=== PATIENT | male | born 1945 | race Two or more races ===

== ENCOUNTER → 2016-12-20 | Outpatient (CLI) | payer MEDICARE ==
[2016-12-20 10:59] LABS: ALANINE AMINOTRANSFERASE 35 U/L (21-72); ALKALINE PHOSPHATASE 73 U/L (38-126); ASPARTATE AMINO TRANSFERASE 29 U/L (17-59); BILIRUBIN,DIRECT 0.4 mg/dL (0.0-0.4); BILIRUBIN,TOTAL 0.5 mg/dL (0.2-1.3); TOTAL PROTEIN 7.2 g/dL (6.3-8.2)
== END ==
LOC: OD 09:00
PROVIDERS: ATTEND Radiology Radiation Oncology
DX: C61 Malignant neoplasm of prostate (principal); R97.20 Elevated prostate specific antigen [PSA]; Z79.899 Other long term (current) drug therapy
CPT/HCPCS: 36415; 80076; 84153

== ENCOUNTER → 2017-03-20 | Outpatient (CLI) | payer MEDICARE | LOC: OD 10:13 | PROVIDERS: ATTEND Radiology Radiation Oncology | DX: C61 Malignant neoplasm of prostate (principal); Z79.899 Other long term (current) drug therapy; R97.20 Elevated prostate specific antigen [PSA] | CPT/HCPCS: 36415; 84153 ==

== ENCOUNTER → 2017-04-10 | Outpatient (CLI) | payer MEDICARE ==
[2017-04-10 07:37] LABS: HEMOGLOBIN 12.5 g/dL (13.5-17.0); HGB HCT DIFFERENCE 1.5; MEAN CORPUSCULAR HEMOGLOBIN 29.4 pg (27.0-33.4); MEAN CORPUSCULAR HGB CONC 34.6 g/dL (32.0-36.0); MEAN CORPUSCULAR VOLUME 85 fl (80-97); RED BLOOD COUNT 4.25 10^6/uL (4.35-5.55); RED CELL DISTRIBUTION WIDTH 14.2 % (11.5-14.0); WHITE BLOOD COUNT 15.6 10^3/uL (4.0-10.5)
[2017-04-10 07:40] LABS: ANISOCYTOSIS SLIGHT; BAND NEUTROPHILS % (MANUAL) 3 % (3-5); BASOPHILS % (MANUAL) 0 % (0-2); EOSINOPHILS % (MANUAL) 0 % (0-6); LYMPHOCYTES % (MANUAL) 3 % (13-45); POLYCHROMASIA SLIGHT; TOTAL CELLS COUNTED 100; TOXIC GRANULATION SLIGHT
[2017-04-10 07:41] LABS: STOMATOCYTES SLIGHT
[2017-04-10 07:43] LABS: ANION GAP 14 (5-19); BLOOD UREA NITROGEN 22 mg/dL (7-20); CALCIUM 9.5 mg/dL (8.4-10.2); CARBON DIOXIDE 26 mmol/L (22-30); CHLORIDE 96 mmol/L (98-107); CREATININE RESULT 1.23 mg/dL (0.52-1.25); GLUCOSE 179 mg/dL (75-110)
== END ==
LOC: LAB 07:27
PROVIDERS: ATTEND Emergency Medicine
DX: R50.9 Fever, unspecified (principal); Z85.038 Personal history of other malignant neoplasm of large intestine; Z85.46 Personal history of malignant neoplasm of prostate; Z86.39 Personal history of other endocrine, nutritional and metabolic disease
CPT/HCPCS: 36415; 80048; 85025

== ENCOUNTER → 2017-07-03 | Outpatient (CLI) | payer MEDICARE ==
--- NOTE | 2017-07-03 13:07 | RADIOLOGY REPORT (SQ) ---
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 The route of agent administration: Intravenous. ADDITIONAL DRUGS AND DOSES: None. TECHNIQUE: Routine delayed images at 3 hours post radionuclide injection acquired of the bony skelet on including anterior and posterior whole-body projections and additional focused images as needed. LIMITATIONS: None. FINDINGS: BONES: Normal visualization without areas of photopenia or increased bony uptake of radiop harmaceutical. KIDNEYS: Activity is present in a dilated right renal collecting system. OTHER: No other significant finding. IMPRESSION: 1. There is no evidence metastatic disease to bone. 2. Right renal collecting systems dilated, suggesting obstruction. COMMENT: Quality measure 147: Current bone scan is compared with any available plain radiographs, p rior bone scans, and CT/MRI. TECHNICAL DOCUMENTATION: JOB ID: [id number] [employer]- All Rights Reserved
== END ==
LOC: RAD 07:30
PROVIDERS: ATTEND Internal Medicine
DX: C61 Malignant neoplasm of prostate (principal)
CPT/HCPCS: 78306; A9561; Q9969

== ENCOUNTER 2017-07-24 09:15 | Day surgery (SDC) | payer MEDICARE ==
[~2017-07-24 09:15] MED LIST: PROPOFOL INJ 200 MG/20 ML VIAL IV ONE
[2017-07-24 11:24] VITALS: BP 104/76
--- NOTE | 2017-07-24 13:57 | Operative Report ---
Operative Report DATE OF SURGERY: 07/24/17 Operative Report: The risks, benefits and alternatives of the procedure including risks of bleeding, perforation requiring surgery are explained to the patient in detail and informed consent is obtained. Patient was taken back to the endoscopy suite and placed in the left, lateral decubital position. Timeout was called. Propofol medications administered. A rectal examination is done which did not reveal any masses, tears or fissures. An Olympus videoscope was inserted into the patient's rectum. The scope was then carefully advanced all the way to the cecum. The cecum was identified by the usual anatomical landmarks including the ileocecal valve as well as the appendiceal office. Photodocumentation is obtained. The scope was then sequentially pulled back via the various segments of the colon including the ascending colon, hepatic flexure, transverse colon, splenic flexure, descending colon finding to the rectosigmoid portions of the colon. Retroflexion maneuvers performed. The risks benefits and alternatives of the procedure explained to the patient in detail and informed consent is obtained.A GIF Olympus video scope was inserted into the patient's mouth and hypopharynx, the esophagus is identified intubated and insufflated, the scope was then advanced through the esophagus stomach and duodenum, retroflexion maneuver is done, the esophagus stomach and first and second portions of the duodenum examined PREOPERATIVE DIAGNOSIS: Blood in stool. Dysphagia, intermittent POSTOPERATIVE DIAGNOSIS: AVMs in the cecum and in the rectum that are cauterized in situ. Diverticulosis. Internal hemorrhoids. Gastritis status post biopsy rule out Helicobacter pylori OPERATION: Colonoscopy with ablation. EGD with biopsy SURGEON: DEBRA MICHEL ANESTHESIA: LMAC TISSUE REMOVED OR ALTERED: As noted above. COMPLICATIONS: None. ESTIMATED BLOOD LOSS: None. INTRAOPERATIVE FINDINGS: As noted above. PROCEDURE: Patient tolerated procedure well. No immediate postprocedure complications are noted. Patient discharged in good condition. Discharge date 07/24/2017. Discharge diet: Regular. Discharge activity: Regular. 2-3 week follow-up to discuss findings. Patient is instructed to call the office or proceed to the emergency room should there be any further problems or questions. We will await pathology.
== END 2017-07-24 11:20 | disposition home or self-care (01) ==
LOC: END 09:15
PROVIDERS: ATTEND Internal Medicine Gastroenterology
PROC: 0D5P8ZZ Destruction of Rectum, Via Natural or Artificial Opening Endoscopic (ICD-10-PCS; 2017-07-24)
PROC: 0DB68ZX Excision of Stomach, Via Natural or Artificial Opening Endoscopic, Diagnostic (ICD-10-PCS; principal; 2017-07-24 10:30)
PROC: 0D5H8ZZ Destruction of Cecum, Via Natural or Artificial Opening Endoscopic (ICD-10-PCS; 2017-07-24 10:30)
DX: K55.20 Angiodysplasia of colon without hemorrhage (principal); K57.30 Diverticulosis of large intestine without perforation or abscess without bleeding; K64.8 Other hemorrhoids; K29.30 Chronic superficial gastritis without bleeding; K92.1 Melena; R13.10 Dysphagia, unspecified; Z87.891 Personal history of nicotine dependence; E11.9 Type 2 diabetes mellitus without complications; I10 Essential (primary) hypertension; E78.5 Hyperlipidemia, unspecified; Z79.84 Long term (current) use of oral hypoglycemic drugs; Z79.899 Other long term (current) drug therapy; Z85.038 Personal history of other malignant neoplasm of large intestine; Z85.46 Personal history of malignant neoplasm of prostate; Z85.528 Personal history of other malignant neoplasm of kidney
CPT/HCPCS: 43239; 45388; 82962; 88342 ×2; 88305 ×2; J2704; 810

== ENCOUNTER 2017-07-28 09:00 | Emergency (ER) | payer MEDICARE ==
[2017-07-28] MEDS ORDERED: MORPHINE SULFATE 10 MG/ML INJ IV ONE ×2 (09:48→12:35)
--- NOTE | 2017-07-28 10:08 | ER Document Report ---
ED General - General Chief Complaint: Urinary Problem Stated Complaint: BLOOD IN URINE FEELING FAINT Time Seen by Provider: 07/28/17 09:22 Mode of Arrival: Ambulatory Information source: Patient Notes: 72 yr old male presents with complaints of flank pain , hematuria. Pt has a hx of kidney stone, bladder cancer. Pt had recent endoscopy colonoscopy on monday. Pt noted to have the blood this morning. TRAVEL OUTSIDE OF THE [place] IN LAST 30 DAYS: No - HPI Onset: Just prior to arrival Onset/Duration: Sudden Quality of pain: Achy Severity: Mild Pain Level: 1 Associated symptoms: Other Exacerbated by: Denies Relieved by: Denies Similar symptoms previously: Yes Recently seen / treated by doctor: Yes - Related Data Allergies/Adverse Reactions: No Known Drug Allergies Allergy (Verified 07/28/17 09:00) Past Medical History - Social History Smoking Status: Never Smoker Cigarette use (# per day): No Chew tobacco use (# tins/day): No Smoking Education Provided: No Frequency of alcohol use: None Drug Abuse: None Family History: Other Patient has suicidal ideation: No Patient has homicidal ideation: No - Past Medical History Cardiac Medical History: Reports: Hx Hypercholesterolemia - meds x 3 years, Hx Hypertension - meds x 3 years Denies: Hx Atrial Fibrillation, Hx Congestive Heart Failure, Hx Coronary Artery Disease, Hx Heart Attack, Hx Peripheral Vascular Disease, Hx Heart Murmur Pulmonary Medical History: Denies: Hx Asthma, Hx Bronchitis, Hx COPD, Hx Pneumonia, Hx Tuberculosis Neurological Medical History: Denies: Hx Cerebrovascular Accident, Hx Seizures Endocrine Medical History: Reports: Hx Hypothyroidism - meds x 1 year. Denies: Hx Graves' Disease, Hx Hyperthyroidism Renal/ Medical History: Reports: Hx Kidney Stones - ESWL x 2, . Denies: Hx Benign Prostatic Hyperplasia, Hx End Stage Renal Disease, Hx Peritoneal Dialysis Malignancy Medical History: Denies Hx Leukemia GI Medical History: Reports: Hx Gastroesophageal Reflux Disease - daily Prilosec. Denies: Hx Crohn's Disease, Hx Hiatal Hernia, Hx Irritable Bowel, Hx Liver Failure, Hx Pancreatitis, Hx Ulcer Musculoskeltal Medical History: Reports Hx Arthritis, Denies Hx Fibromyalgia, Denies Hx Muscular Dystrophy Traumatic Medical History: Denies: Hx Fractures Infectious Medical History: Denies: Hx HIV Past Surgical History: Reports: Hx Bowel Surgery - colon resection (25") 2007, no f/u chemo, Hx Herniorrhaphy - ventral w/mesh, subsequent mesh removal r/t infection, Hx Tonsillectomy - as child. Denies: Hx Appendectomy, Hx Cholecystectomy, Hx Colostomy, Hx Coronary Artery Bypass Graft, Hx Gastric Bypass Surgery, Hx Pacemaker - Immunizations Hx Diphtheria, Pertussis, Tetanus Vaccination: Yes Review of Systems - Review of Systems Notes: REVIEW OF SYSTEMS: CONSTITUTIONAL : Denies fever, chills, or sweats. Denies recent illness. EENT: Denies eye, ear, throat, or mouth pain or symptoms. Denies nasal or sinus congestion or discharge. Denies throat, tongue, or mouth swelling or difficulty swallowing. CARDIOVASCULAR: Denies chest pain. Denies palpitations or racing or irregular heart beat. Denies ankle edema. RESPIRATORY: Denies cough, cold, or chest congestion. Denies shortness of breath, difficulty breathing, or wheezing. GASTROINTESTINAL: Denies abdominal pain or distention. Denies nausea, vomiting , or diarrhea. Denies blood in vomitus, stools, or per rectum. Denies black, tarry stools. Denies constipation. GENITOURINARY: hematuria MUSCULOSKELETAL: flank pain SKIN: Denies rash, lesions or sores. HEMATOLOGIC : Denies easy bruising or bleeding. LYMPHATIC: Denies swollen, enlarged glands. NEUROLOGICAL: Denies confusion or altered mental status. Denies passing out or loss of consciousness. Denies dizziness or lightheadedness. Denies headache. Denies weakness or paralysis or loss of use of either side. Denies problems with gait or speech. Denies sensory loss, numbness, or tingling. Denies seizures. PSYCHIATRIC: Denies anxiety or stress. Denies depression, suicidal ideation, or homicidal ideation. ALL OTHER SYSTEMS REVIEWED AND NEGATIVE. Dictation was performed using [employer] voice recognition software PHYSICAL EXAMINATION: GENERAL: Well-appearing, well-nourished and in mild acute distress. HEAD: Atraumatic, normocephalic. EYES: Pupils equal round and reactive to light, extraocular movements intact, sclera anicteric, conjunctiva are normal. ENT: Nares patent, oropharynx clear without exudates. Moist mucous membranes. NECK: Normal range of motion, supple without lymphadenopathy LUNGS: Breath sounds clear to auscultation bilaterally and equal. No wheezes rales or rhonchi. HEART: Regular rate and rhythm without murmurs ABDOMEN: Soft, nontender, nondistended abdomen. No guarding, no rebound. No masses appreciated. Musculoskeletal: Normal range of motion, no pitting or edema. No cyanosis. NEUROLOGICAL: Cranial nerves grossly intact. Normal speech, normal gait. Normal sensory, motor exams PSYCH: Normal mood, normal affect. SKIN: Warm, Dry, normal turgor, no rashes or lesions noted. Physical Exam - Vital signs Vitals: Temp Pulse Resp BP Pulse Ox 97.2 F 115 H 16 123/90 H 96 07/28/17 09:18 07/28/17 09:18 07/28/17 09:18 07/28/17 09:18 07/28/17 09:18 Course - Re-evaluation Re-evalutation: 07/28/17 10:09 pts urine sample noted to have large amount of blood, pyelonephritis 07/28/17 11:[address] results noted , pt urologist Dr Tillman. 07/28/17 11:48 Dr Schmidt Requests bladder scan, put [address] catheter, accepts patient to his care patient except on behalf of Dr. tillman 07/28/17 13:36 27 ml noted on bladder scan / 07/28/17 20:34 Patient otherwise is stable was transferred with no problems, patient states he has no more pain - Vital Signs Vital signs: Temp Pulse Resp BP Pulse Ox 97.9 F 95 16 140/75 H 93 07/28/17 13:11 07/28/17 13:11 07/28/17 13:11 07/28/17 13:11 07/28/17 13:11 - Laboratory Result Diagrams: 07/28/17 10:12 07/28/17 10:12 Laboratory results interpreted by me: 07/28/17 07/28/17 07/28/17 09:45 10:12 10:12 RBC 4.25 L Hgb 11.8 L Hct 35.3 L RDW 15.5 H Seg Neutrophils % 86.8 H Lymphocytes % 7.9 L Absolute Neutrophils 8.6 H BUN 26 H Creatinine 1.26 H Est GFR (Non-Af Amer) 56 L Glucose 156 H Urine Protein >=500 H Urine Blood LARGE H Ur Leukocyte Esterase TRACE H - Diagnostic Test Radiology reviewed: Image reviewed, Reports reviewed - Marked hydronephrosis bilateral Discharge - Discharge Clinical Impression: Pyelonephritis Hydronephrosis Qualifiers: Hydronephrosis type: unspecified Qualified Code(s): N13.30 - Unspecified hydronephrosis Hematuria Qualifiers: Hematuria type: gross Qualified Code(s): R31.0 - Gross hematuria Condition: Stable Disposition: [facility] Referrals: LISA FELIX MD [Primary Care Provider] - Follow up as needed
[2017-07-28 10:24] LABS: ABSOLUTE EOSINOPHILS # (AUTO) 0.1 10^3/uL (0.0-0.6); ABSOLUTE LYMPHOCYTES (AUTO) 0.8 10^3/uL (0.5-4.7); ABSOLUTE MONOCYTES (AUTO) 0.4 10^3/uL (0.1-1.4); ABSOLUTE NEUT (AUTO) 8.6 10^3/uL (1.7-8.2); BASOPHILS % (AUTO) 0.3 % (0-2); EOSINOPHILS % (AUTO) 0.6 % (0-6); HEMATOCRIT 35.3 % (37.9-51.0); HEMOGLOBIN 11.8 g/dL (13.5-17.0); HGB HCT DIFFERENCE 0.1; LYMPHOCYTES % (AUTO) 7.9 % (13-45); MEAN CORPUSCULAR HEMOGLOBIN 27.8 pg (27.0-33.4); MEAN CORPUSCULAR HGB CONC 33.6 g/dL (32.0-36.0); MEAN CORPUSCULAR VOLUME 83 fl (80-97); MONOCYTES % (AUTO) 4.4 % (3-13); RED BLOOD COUNT 4.25 10^6/uL (4.35-5.55); RED CELL DISTRIBUTION WIDTH 15.5 % (11.5-14.0); SEGMENTED NEUTROPHILS % (AUTO) 86.8 % (42-78); WHITE BLOOD COUNT 9.9 10^3/uL (4.0-10.5)
[2017-07-28 10:31] LABS: APPEARANCE,URINE SLIGHTLY-CLOUDY; BILIRUBIN,URINE NEGATIVE (NEGATIVE); GLUCOSE, URINE NEGATIVE (NEGATIVE); KETONES,URINE NEGATIVE (NEGATIVE); LEUKOCYTE ESTERASE,URINE TRACE (NEGATIVE); NITRITE,URINE NEGATIVE (NEGATIVE); PROTEIN,URINE >=500 mg/dL (NEGATIVE); URINE SPECIFIC GRAVITY 1.013; UROBILINOGEN,URINE NEGATIVE mg/dL (<2.0)
[2017-07-28] MEDS ORDERED: CEFTRIAXONE 1 GM/D5W RTU 1 GM/50 ML RTUPB IV ONE (10:46)
[2017-07-28 10:50] LABS: ALANINE AMINOTRANSFERASE 22 U/L (21-72); ALBUMIN 4.1 g/dL (3.5-5.0); ALKALINE PHOSPHATASE 92 U/L (38-126); ANION GAP 13 (5-19); ASPARTATE AMINO TRANSFERASE 24 U/L (17-59); BILIRUBIN,DIRECT 0.3 mg/dL (0.0-0.4); BILIRUBIN,TOTAL 0.3 mg/dL (0.2-1.3); BLOOD UREA NITROGEN 26 mg/dL (7-20); CALCIUM 9.5 mg/dL (8.4-10.2); CARBON DIOXIDE 25 mmol/L (22-30); CHLORIDE 105 mmol/L (98-107); CREATININE RESULT 1.26 mg/dL (0.52-1.25); GLUCOSE 156 mg/dL (75-110); POTASSIUM 3.7 mmol/L (3.6-5.0); SODIUM 142.6 mmol/L (137-145); TOTAL PROTEIN 8.2 g/dL (6.3-8.2)
--- NOTE | 2017-07-28 11:19 | RADIOLOGY REPORT (SQ) ---
EXAM DESCRIPTION: CT ABD/PELVIS NO ORAL OR IV COMPLETED DATE/TIME: 07/28/2017 10:43 am REASON FOR STUDY: bladder ca, hematuria, recent colonoscopy COMPARISON: 03/17/2016. Bone scan 07/03/2017. TECHNIQUE: CT scan of the abdomen and pelvis performed without intravenous or oral contrast. Images reviewed with lung, soft tissue, and bone windows. Reconstructed coronal and sagittal MPR images revi ewed. All images stored on PACS. All CT scanners at this facility use dose modulation, iterative reconstruction, and/or weight based d osing when appropriate to reduce radiation dose to as low as reasonably achievable (ALARA). [facility]: Dose Right [facility]: CareDose [facility]: Dose Right [facility]: Teradose 4D [facility]: [employer] RADIATION DOSE: CT Rad equipment meets quality standard of care and radiation dose reduction techniq ues were employed. CTDIvol: 17.9 mGy. DLP: 988 mGy-cm.mGy. LIMITATIONS: None. FINDINGS: LOWER CHEST: No significant findings. No nodules or infiltrates. NON-CONTRASTED LIVER, SPLEEN, ADRENALS: Subcentimeter cyst in the central liver. Normal liver size a nd contours. Spleen unremarkable. Low density chronic subcentimeter nodule measuring less than 1 cm in the left adrenal gland. Consistent with an adenoma. PANCREAS: No masses. No peripancreatic inflammatory changes. GALLBLADDER: No identified stones by CT criteria. No inflammatory changes to suggest cholecystitis. RIGHT KIDNEY AND URETER: Moderate to marked hydronephrosis with dilatation of the right ureter throug hout. No obstructing stone demonstrated, however. Numerous nonobstructing calculi in the lower pole . Cysts are also present, measuring up to 3 cm. LEFT KIDNEY AND URETER: Mild-moderate hydronephrosis and dilatation of the renal pelvis. Generalized dilatation of the ureter with mild stranding proximally. Sizable parapelvic cyst measures just unde r 8 cm. No obstructing ureteral stone. Other small cysts are also present some of which may be mild ly complicated. AORTA AND RETROPERITONEUM: No aortic aneurysm. No retroperitoneal mass or adenopathy. BOWEL AND PERITONEAL CAVITY: No dilated loops or abnormal wall thickening or bowel related inflammato ry process. No ascites or abnormal gas. APPENDIX: Normal. PELVIS, BLADDER, AND ABDOMINAL WALL:Small stone dependently in the bladder, midline. This measures j ust over 4 mm. No gross bladder mass. Broad ventral hernia spans approximately 11 cm craniocaudally . Up to 14 cm transverse dimension. This contains loops of small bowel predominantly. No fluid or inflammatory changes. Mild rectal wall thickening, incompletely assessed. BONES: Bilateral L5 pars defects with grade 1 listhesis. No fracture or bone lesion. OTHER: Bilateral fat containing inguinal hernias. IMPRESSION: 1. Moderate-marked right hydronephrosis, progressive compared to prior. Ureter now als o dilated but no obstructing stone or mass detected. Nonobstructive right lower pole stones are note d. 2. Mild to moderate left hydronephrosis. This has developed since the prior study. Again, no ob structing mass or stones related to the ureter. 3. Tiny stone now noted in the bladder, not seen in 2016. 4. Large ventral hernia is now present containing predominantly small bowel but without any o vert mechanical bowel obstruction. TECHNICAL DOCUMENTATION: JOB ID: [id number] Quality ID # [id number]: Final reports with documentation of one or more dose reduction techniques (e.g., Au tomated exposure control, adjustment of the mA and/or kV according to patient size, use of iterative reconstruction technique) 2010 [employer]- All Rights Reserved
[2017-07-28] MEDS ORDERED: ONDANSETRON HCL INJ/PF 4 MG/2 ML SDV IV ONE (11:45)
[2017-07-28] MEDS ORDERED: LIDOCAINE 2% URO-JET 5 ML KIT MM ONE (12:04)
[2017-07-28 20:50] VITALS: BP 124/63
== END 2017-07-28 20:10 | disposition short-term general hospital (02) ==
LOC: ER 09:00
DX: N12 Tubulo-interstitial nephritis, not specified as acute or chronic (principal); N13.30 Unspecified hydronephrosis; R31.0 Gross hematuria; R39.198 Other difficulties with micturition; R31.9 Hematuria, unspecified; R10.9 Unspecified abdominal pain
CPT/HCPCS: 96376; 99285; 96375; 96365; 36415; 87040; 87086; 85025; 80053; 81001; 74176; J2270; J2405; J0696; A9270; J3490

== ENCOUNTER → 2018-01-22 | Outpatient (CLI) | payer MEDICARE ==
--- NOTE | 2018-01-22 11:06 | RADIOLOGY REPORT (SQ) ---
EXAM DESCRIPTION: U/S RETROPERITON (RENAL/AORTA) COMPLETED DATE/TIME: 01/22/2018 10:29 am REASON FOR STUDY: HYDRONEPHROSIS (N13.30) N13.30 UNSPECIFIED HYDRONEPHROSIS COMPARISON: None. TECHNIQUE: Dynamic and static grayscale images acquired of the kidneys and bladder and recorded on P ACS. Additional selected color Doppler and spectral images recorded. LIMITATIONS: None. FINDINGS: RIGHT KIDNEY: The right kidney measures 13.0 cm in length, normal size. Normal echogenici ty. A cyst in the upper pole measures 2.7 x 2.3 x 2.6 cm. Moderate dilatation of the right renal pe lvis. Multiple echogenic foci, suggest renal calculi. LEFT KIDNEY: The left kidney measures 11.8. cm in length, normal size. Normal echogenicity. Multip le cysts are identified. The cyst in the mid pole measures 4.7 x 4.7 x 4.5 cm and is septated in emili earance. There are two cysts in the lower pole which measure 7.9 x 8.2 x 7.9 cm and 2.4 x 2.7 x 2.8 cm. No hydronephrosis. No calcifications. BLADDER: No masses. OTHER FINDINGS: Incidentally, gallstones. IMPRESSION: 1 The right renal pelvis is dilated, the etiology not is identified on this examination. Correlation suggested appear 2. Right renal calculi. 3. Bilateral renal cysts, more numerous on the left. 4. Incidentally, gallstones. TECHNICAL DOCUMENTATION: JOB ID: [id number] [employer]- All Rights Reserved Reading location - IP/workstation name: [email or web address]
== END ==
LOC: RAD 08:58
PROVIDERS: ATTEND Urology
DX: N13.30 Unspecified hydronephrosis (principal); K80.80 Other cholelithiasis without obstruction; N20.0 Calculus of kidney; Q61.02 Congenital multiple renal cysts
CPT/HCPCS: 76770

== ENCOUNTER 2018-02-07 08:57 | Outpatient (CLI) | payer MEDICARE ==
[~2018-02-07 08:57] MED LIST changes: +FERUMOXYTOL (NON-ESRD) 510 MG/NS 100 ML IV PRN; +NORMAL SALINE 250 ML IV PRN; -PROPOFOL INJ 200 MG/20 ML VIAL IV ONE
[2018-02-07 09:42] VITALS: BP 137/65
== END 2018-02-07 11:00 | disposition home or self-care (01) ==
LOC: II 08:57 → 5TH 09:15 → II 11:00
PROVIDERS: ATTEND Internal Medicine
PROC: 3E033GC Introduction of Other Therapeutic Substance into Peripheral Vein, Percutaneous Approach (ICD-10-PCS; principal; 2018-02-07)
DX: D50.9 Iron deficiency anemia, unspecified (principal); N18.2 Chronic kidney disease, stage 2 (mild)
CPT/HCPCS: 96365; Q0138; 96367

== ENCOUNTER 2018-02-14 08:24 | Outpatient (CLI) | payer MEDICARE, OTHER ==
[2018-02-14 08:43] VITALS: BP 133/67
== END 2018-02-14 10:22 | disposition home or self-care (01) ==
LOC: II 08:24 → 5TH 08:26 → II 10:22
PROVIDERS: ATTEND Internal Medicine
PROC: 3E033GC Introduction of Other Therapeutic Substance into Peripheral Vein, Percutaneous Approach (ICD-10-PCS; principal; 2018-02-14)
DX: D50.9 Iron deficiency anemia, unspecified (principal); N18.2 Chronic kidney disease, stage 2 (mild)
CPT/HCPCS: 96365; Q0138

== ENCOUNTER → 2019-10-10 | Outpatient (CLI) | payer MEDICARE, OTHER ==
--- NOTE | 2019-10-10 11:41 | RADIOLOGY REPORT (SQ) ---
EXAM DESCRIPTION: CT ABD/PELVIS NO ORAL OR IV COMPLETED DATE/TIME: 10/10/2019 7:33 am REASON FOR STUDY: FLANK PAIN (R10.9), HX OF KIDNEY STONES (Z87.442) R10.9 UNSPECIFIED ABDOMINAL MISBAH N Z87.442 PERSONAL HISTORY OF URINARY CALCULI COMPARISON: CT of the abdomen pelvis without contrast from 07/28/2017. TECHNIQUE: CT scan of the abdomen and pelvis performed without intravenous or oral contrast. Images reviewed with lung, soft tissue, and bone windows. Reconstructed coronal and sagittal MPR images revi ewed. All images stored on PACS. All CT scanners at this facility use dose modulation, iterative reconstruction, and/or weight based d osing when appropriate to reduce radiation dose to as low as reasonably achievable (ALARA). [facility]: Dose Right [facility]: CareDose [facility]: Dose Right [facility]: Teradose 4D [facility]: [employer] RADIATION DOSE: CT Rad equipment meets quality standard of care and radiation dose reduction techniq ues were employed. CTDIvol: 16.8 mGy. DLP: 937 mGy-cm. LIMITATIONS: None. FINDINGS: LOWER CHEST: Atherosclerotic calcification of the mitral annulus. The 3 mm nodule in the right lower lobe (image 5 of series 2) is stable from 07/28/2017 NON-CONTRASTED LIVER, SPLEEN, ADRENALS: Evaluation is limited due to the absence of intravenous contr ast. There is no CT evidence hepatic steatosis. The spleen is normal in size. The subcentimeter le ft adrenal nodule (image 23 of series 2) is stable. There is no abnormality of the right adrenal gla nd. PANCREAS: No acute gross abnormality of the pancreas. GALLBLADDER: No abnormality that is apparent on CT. RIGHT KIDNEY AND URETER: Evaluation is limited due to the absence of intravenous contrast. The renal pelvis is distended and patulous. There are several nonobstructive calculi in the kidney. The calc ification adjacent to the proximal ureter on image 50 of series 2 represents a phlebolith. There is no hydroureter or ureterolithiasis. The peripherally calcified structure on image 38 of series 2 is unchanged. There are several hypodense cortical-based lesions that range in size from 8 mm to 3.8 x 3 .8 cm; these lesions could represent cysts. LEFT KIDNEY AND URETER: Evaluation is limited due to the absence of intravenous contrast. There is r e- demonstration of a 7.6 x 7.2 cm water attenuation cyst that extends into the renal pelvis ; the ot her cortical based hypodense lesions that range in size from less than 10 mm to 3.9 x 3.3 cm are also unchanged. The ureter is patulous ; there is no hydronephrosis, nephrolithiasis, hydroureter or ure terolithiasis. AORTA AND RETROPERITONEUM: Unchanged ectasia of the right common iliac artery. The abdominal aorta i s nonaneurysmal. There is no retroperitoneal adenopathy, hemorrhage or mass. BOWEL AND PERITONEAL CAVITY: Bowel anastomotic line within the ventral hernial sac ; the fecalization of the material in the bowel around the anastomosis could represent stasis. There is colonic diverticulosis without diverticulitis. There is no bowel obstruction, bowel wall th ickening or pericolonic/ perienteric inflammation. There is no mesenteric adenopathy, free intraperi toneal fluid or mesenteric/ omental inflammation. APPENDIX: Unable to identify the appendix. PELVIS, BLADDER, AND ABDOMINAL WALL:Prostate gland is surgically absent. The urinary bladder is dist ended. There is no urinary bladder calculus. There there is a ventral hernia defect that measures u p to 11 cm in width; the hernia sac contains fat and several loops of bowel. The inguinal canals are patulous and there is a probable fat containing inguinal hernia on the left. BONES: Grade 1 anterolisthesis of L5 relative to S1. OTHER: No other finding. IMPRESSION: 1. The right renal pelvis is distended and patulous. There are several nonobstructive c alculi in the right kidney. The calcification adjacent to the proximal right ureter on image 50 of s eries 2 represents a phlebolith. There is no hydroureter or ureterolithiasis. 2. Stable bilateral cystic renal lesions. 3. Other findings as detailed above. COMMENT: Quality ID # [id number]: Final reports with documentation of one or more dose reduction techniques (e.g., Automated exposure control, adjustment of the mA and/or kV according to patient size, use of iterative reconstruction technique) TECHNICAL DOCUMENTATION: JOB ID: [id number] 2010 [employer]- All Rights Reserved Reading location - IP/workstation name: [facility]-
== END ==
LOC: RAD 07:01
PROVIDERS: ATTEND Physician Assistant
DX: R10.9 Unspecified abdominal pain (principal); Z87.442 Personal history of urinary calculi
CPT/HCPCS: 74176